=== PATIENT | male | born 1965 | race Caucasian/White ===

== ENCOUNTER 2020-06-14 08:22 | Emergency (ER) | payer BC ==
[~2020-06-14] VITALS: Ht 180.3 cm; Wt 125.0 kg
[~2020-06-14 08:22] MED LIST: FLAGYL500 MG PO; LEVAQUIN 750MG750 M1 PO; NORCO 325 MG-7.1 TAB PO; TYLENOL 500MG500 MG PO
[2020-06-14 08:32] VITALS: TEMP 97
[2020-06-14 08:58] LABS: BASO # 0.1 (0.0-0.2); BASO % 0.7 % (0.0-2.0); EOS # 0.3 (0.0-0.7); EOS % 3.7 % (0-4.0); GRAN # 4.4 (1.4-6.5); GRAN % 65.5 % (42.2-75.2); HEMATOCRIT 49.3 % (42.0-52.0); HEMOGLOBIN 16.7 g/dl (13.5-18.0); LYMPH # 1.5 (1.2-3.4); LYMPH % 22.5 % (20.0-51.0); MEAN CELL VOLUME 86 fl (80.0-100.0); MEAN CORPUSCULAR HEMOGLOBIN 29 pg (27.0-31.0); MEAN CORPUSCULAR HGB CONC 34 g/dl (33.0-37.0); MEAN PLATELET VOLUME 10.2 fl (7.4-10.4); MONO # 0.5 (0.1-0.6); MONO % 6.9 % (1.7-9.3); PLATELET COUNT 245 K/mm3 (130-400); RED BLOOD COUNT 5.73 M/mm3 (4.20-5.60); REDCELL DISTRIBUTION WIDTH-CV 12.5 % (11.5-14.5)
[2020-06-14 09:04] LABS: ALBUMIN 3.7 gm/dL (3.5-5.0); BILIRUBIN,TOTAL 0.5 mg/dL (0.0-1.0); CALCIUM 8.6 mg/dL (8.4-10.2); CREATININE, serum 0.91 (0.66-1.25); POTASSIUM 4.2 mmol/L (3.4-5.0); TOTAL PROTEIN 6.6 gm/dL (6.4-8.2)
[2020-06-14 09:10] LABS: C-REACTIVE PROTEIN 0.5 mg/dL (0.0-0.9)
[2020-06-14 09:14] LABS: TROPONIN-I 0.02 ng/mL (0.000-0.035)
[2020-06-14 12:16] VITALS: BP 125/92; PULSE 96
== END 2020-06-14 12:16 | disposition home or self-care (01) ==
LOC: COL.ER 08:22
PROVIDERS: Emergency Medicine
DX: J90 Pleural effusion, not elsewhere classified (principal); F17.220 Nicotine dependence, chewing tobacco, uncomplicated; Z20.828 Contact with and (suspected) exposure to other viral communicable diseases
CPT/HCPCS: J7030; Q9967

== ENCOUNTER 2020-08-01 08:58 | Day surgery (SDC) | payer BC ==
[~2020-08-01] VITALS: Ht 180.3 cm; Wt 124.3 kg
[2020-08-01] VITALS (12 sets, daily range): BP systolic 100–124; BP diastolic 59–90; PULSE 62–94; TEMP 98.1–98.3
[2020-08-01 09:46] LABS: HEMATOCRIT 51.8 % (42.0-52.0); HEMOGLOBIN 17.6 g/dl (13.5-18.0); MEAN CELL VOLUME 86 fl (80.0-100.0); MEAN CORPUSCULAR HEMOGLOBIN 29 pg (27.0-31.0); MEAN CORPUSCULAR HGB CONC 34 g/dl (33.0-37.0); MEAN PLATELET VOLUME 9.1 fl (7.4-10.4); PLATELET COUNT 218 K/mm3 (130-400); RED BLOOD COUNT 6.02 M/mm3 (4.20-5.60); REDCELL DISTRIBUTION WIDTH-CV 12.2 % (11.5-14.5)
[2020-08-01 09:54] LABS: INR 1.1 (0.8-3.0); PROTHROMBIN TIME 11.8 SECONDS (9.7-12.8)
[2020-08-01 09:56] LABS: PARTIAL THROMBOPLASTIN TIME 33.7 SECONDS (26.0-37.0)
[2020-08-01] MEDS ORDERED: PRINIVIL5 MG PO (10:01)
[2020-08-01] MEDS ORDERED: TOPROL XL 50MG50 MG PO (10:01)
[2020-08-01] MEDS ORDERED: ASPIRIN 81M81 MG/TA2 PO (10:02)
[2020-08-01] MEDS ORDERED: ELIQUIS 5MG PO (10:03)
[2020-08-01 10:04] LABS: ALBUMIN 4.5 gm/dL (3.5-5.0); BILIRUBIN,TOTAL 0.7 mg/dL (0.0-1.0); CALCIUM 9.5 mg/dL (8.4-10.2); CREATININE, serum 0.95 (0.66-1.25); MAGNESIUM 2.1 mg/dL (1.6-2.3); POTASSIUM 4.4 mmol/L (3.4-5.0); TOTAL PROTEIN 7.5 gm/dL (6.4-8.2)
--- NOTE | 2020-08-01 12:05 | NUR ---
SEE MERGE DOCUMENTATION FOR MEDICATION ADMINISTRATION TIMES AND INTRA/POST PROCEDURE SEDATION ASSESSMENTS.
--- NOTE | 2020-08-01 16:30 | NUR ---
REMOVED TR BAND AND APPLIED PRESSURE DRESSING. VSS. NO BLEEDING NOTED FROM SITE. NO NUMBNESS, TINGLING, OR COLOR CHANGES IN EXTREMITY. APPLIED STERILE DRESSING AND WRAPPED WITH COBAN. GAVE PT DISCHARGE INFORMATION TO PT. PT ESCORTED BY THIS NURSE TO MAIN ENTRANCE WHERE SPOUSE WAS THERE TO PICK HIM UP.
[2020-08-05] MEDS ORDERED: PREDNISONE20 MG PO (02:35)
== END 2020-08-01 16:47 ==
LOC: COL.CAR 08:58
PROVIDERS: Internal Medicine Cardiovascular Disease
DX: R94.39 Abnormal result of other cardiovascular function study (principal); I42.9 Cardiomyopathy, unspecified; I34.0 Nonrheumatic mitral (valve) insufficiency; I48.19 Other persistent atrial fibrillation; E66.9 Obesity, unspecified; I10 Essential (primary) hypertension; Z79.01 Long term (current) use of anticoagulants; Z20.822 Contact with and (suspected) exposure to COVID-19
CPT/HCPCS: J1644; J2250; J3010; Q9967

== ENCOUNTER 2020-08-04 19:06 | Emergency (ER) | payer BC ==
[~2020-08-04] VITALS: Ht 180.3 cm; Wt 120.5 kg
[~2020-08-04 19:06] MED LIST changes: +ASPIRIN 81M81 MG/TA2 PO; +ELIQUIS 5MG PO; +PRINIVIL5 MG PO; +TOPROL XL 50MG50 MG PO
[2020-08-04 19:34] VITALS: BP 118/84; TEMP 98.3
[2020-08-04 22:20] VITALS: PULSE 84
[2020-08-04] MEDS ORDERED: PERCOCET 325 MG1 TA2 PO (22:21)
[2020-08-05] MEDS ORDERED: PREDNISONE20 MG PO (02:35)
== END 2020-08-04 22:30 | disposition home or self-care (01) ==
LOC: COL.ER 19:06
DX: M25.431 Effusion, right wrist (principal); F17.290 Nicotine dependence, other tobacco product, uncomplicated; Z79.82 Long term (current) use of aspirin; Z79.01 Long term (current) use of anticoagulants; X58.XXXA Exposure to other specified factors, initial encounter
CPT/HCPCS: J7512

== ENCOUNTER → 2020-08-05 | Outpatient (CLI) | payer BC ==
[~2020-08-05] MED LIST changes: +PERCOCET 325 MG1 TA2 PO; +PREDNISONE20 MG PO
== END ==
LOC: COL.VAS 09:00
DX: M79.89 Other specified soft tissue disorders (principal)

== ENCOUNTER 2020-09-04 07:07 | Day surgery (SDC) | payer BC ==
[~2020-09-04] VITALS: Ht 180.3 cm; Wt 120.0 kg
[2020-09-04 08:03] LABS: HEMATOCRIT 48.2 % (42.0-52.0); HEMOGLOBIN 16.3 g/dl (13.5-18.0); MEAN CELL VOLUME 85 fl (80.0-100.0); MEAN CORPUSCULAR HEMOGLOBIN 29 pg (27.0-31.0); MEAN CORPUSCULAR HGB CONC 34 g/dl (33.0-37.0); MEAN PLATELET VOLUME 9.1 fl (7.4-10.4); PLATELET COUNT 217 K/mm3 (130-400); RED BLOOD COUNT 5.66 M/mm3 (4.20-5.60); REDCELL DISTRIBUTION WIDTH-CV 12.4 % (11.5-14.5)
[2020-09-04 08:09] LABS: INR 1.3 (0.8-3.0)
[2020-09-04 08:10] LABS: CREATININE, serum 0.96 (0.66-1.25); MAGNESIUM 2.1 mg/dL (1.6-2.3); POTASSIUM 4.4 mmol/L (3.4-5.0)
[2020-09-04 08:42] LABS: THYROID STIMULATING HORMONE 0.885 uIU/mL (0.465-4.680)
[2020-09-04 08:47] VITALS: BP 142/89; PULSE 74; TEMP 97.8
[2020-09-04 09:45] VITALS: BP 117/78; PULSE 65
[2020-09-04 10:00] VITALS: BP 116/83; PULSE 66
[2020-09-04 10:15] VITALS: BP 120/93; PULSE 71
[2020-09-04 10:30] VITALS: BP 118/89; PULSE 74
[2020-09-04 10:45] VITALS: BP 102/60; PULSE 65
--- NOTE | 2020-09-04 10:57 | NUR ---
Discharge instructions given to pt.Pt verbalizes understanding.INT removed,catheter tip intact.
--- NOTE | 2020-09-04 11:15 | NUR ---
Pt escorted out via wheelchair by this nurse.
== END 2020-09-04 12:23 | disposition home or self-care (01) ==
LOC: COL.CAR 07:07
PROVIDERS: Internal Medicine Cardiovascular Disease
DX: I48.19 Other persistent atrial fibrillation (principal); I42.8 Other cardiomyopathies; I34.0 Nonrheumatic mitral (valve) insufficiency; M25.539 Pain in unspecified wrist; I10 Essential (primary) hypertension; E66.9 Obesity, unspecified; M10.9 Gout, unspecified; F17.220 Nicotine dependence, chewing tobacco, uncomplicated; F17.290 Nicotine dependence, other tobacco product, uncomplicated; Z90.49 Acquired absence of other specified parts of digestive tract; Z79.899 Other long term (current) drug therapy; Z20.822 Contact with and (suspected) exposure to COVID-19; Z68.38 Body mass index [BMI] 38.0-38.9, adult
CPT/HCPCS: J2704; J7120

== ENCOUNTER → 2020-10-31 | Outpatient (CLI) | payer BC | LOC: COL.LAB 08:29 | DX: Z01.818 Encounter for other preprocedural examination (principal); Z20.822 Contact with and (suspected) exposure to COVID-19 ==